=== PATIENT | male | born 2000 | race Caucasian/White ===

== ENCOUNTER 2022-02-04 06:59 | Outpatient (CLI) | payer OTHER, SELFPAY ==
--- NOTE | 2022-02-04 07:15 | US_ITS ---
WS: [id number] Limited abdomen ultrasound. HISTORY: Evaluate for hernia. Ultrasound is directed to the RIGHT inguinal region. There is a single loop of bowel which extends ve ry superficial and anterior to the femoral vein. I suspect this may be a nonincarcerated loop of mary l. No lymph nodes. During Valsalva this loop of bowel in the RIGHT inguinal region becomes more promi nent. US/US abdomen limited [id number] IMPRESSION: Findings are highly suspicious for RIGHT inguinal hernia which is nonincarcerat ed. This finding can be confirmed confirmed with CT evaluation.
== END 2022-02-04 07:00 | disposition home or self-care (01) ==
LOC: RAD 07:00
PROVIDERS: PCP Family Medicine; Visit Provider Family Medicine
DX: K40.90 Unilateral inguinal hernia, without obstruction or gangrene, not specified as recurrent (principal)
CPT/HCPCS: 76705

== ENCOUNTER 2022-02-21 08:31 | Day surgery (SDC) | payer OTHER, MEDICAID, SELFPAY ==
[2022-02-20 13:15] VITALS: BMI 24.2
[2022-02-21] VITALS (10 sets, daily range): BP systolic 107–131; BP diastolic 49–96; PULSE 59–96; RESP 12–18; TEMP 36.4–36.7; O2SAT 97–100
--- NOTE | 2022-02-21 09:04 | W.PM.OPSFHP ---
Same Day Surgery H&P Indication for Procedure/HPI DATE OF PROCEDURE: February 21, 2022 CHIEF COMPLAINT/INDICATIONFOR SURGICAL PROCEDURE: right inguinal hernia repair PREOP DIAGNOSIS: inguinal hernia PLANNED PROCEDURE: Operation Date: 02/21/22 09:50 Proposed Procedures p Laparoscopic Inguinal Hernia Repair 47891/k40.90(Right) - Anselmo Tyson MD Medications/Allergies* Home Medications Medication Instructions Recorded Confirmed Type No Known Home Medications 12/19/21 02/21/22 History Allergies/Adverse Reactions Allergy/AdvReac Type Severity Reaction Status Date / Time No Known Allergies Allergy Verified 02/15/22 09:30 Pertinent History/Comorbid Conditions* Social History Smoking and tobacco status: never smoked Second hand smoke exposure: No Alcohol intake: never Desire information about alcohol rehabilitation?: No Desire information about substance/drug rehabilitation?: No Pertinent Exam Findings alert, oriented x 3 and regular rate & rhythm Recommendations Surgery/Procedure today Coding Level of Care Code Acute Early [employer] Director for Kam Allen
[2022-02-21] MEDS: sodium chloride 0.9% 1,000 ML 30 ML IV (09:16)
--- NOTE | 2022-02-21 09:28 | ANES.PREANE2 ---
Pre-Anesthetic Assessment Height/Weight: Height 1.68 m Weight 68.039 kg Temp Pulse Resp BP Pulse Ox 97.9 F 72 16 131/96 100 02/21/22 08:46 02/21/22 08:46 02/21/22 08:46 02/21/22 08:46 02/21/22 08:46 Preop Diagnosis: inguinal hernia Operation Date: 02/21/22 09:50 Proposed Procedures p Laparoscopic Inguinal Hernia Repair [id number]/k40.90(Right) - Anselmo Tyson MD Familial anesthetic complications: none Was Beta Rahel taken within 24 hours: N/A Was Clonidine taken within 24 hours: N/A Last intake: Intake Last Liquid Date 02/20/22 Last Liquid Time 22:00 Last Solid Date 02/20/22 Last Solid Time 22:00 Social No alcohol and No tobacco Former addict Exam alert, oriented x 3, clear to auscultation bilaterally and regular rate & rhythm Airway Mallampati: Class I Dentition: other (4 missing teeth) Pulmonary None reported CV/HEM None reported None reported Hepatic None reported GI None reported Metabolic None reported Musc/skel None reported Neuropsych None reported Anesthetic Plan ASA status: 1 Anesthesia: General Other: Patient wishes to avoid any opioid due to history of addiction. This includes fentanyl during placement of ETT. purpose of fentanyl for intubation was explained to patient, but he still would like to decline. Risk of > 500 ml blood loss (7ml/kg in children): No Medications/Allergies Home Medications Medication Instructions Recorded Confirmed Last Taken Type No Known Home Medications 12/19/21 02/21/22 Unknown History Allergies Allergy/AdvReac Type Severity Reaction Status Date / Time No Known Allergies Allergy Verified 02/15/22 09:30 Current Medications Generic Name Dose Route Start Last Admin Trade Name Freq PRN Reason Stop Dose Admin Sodium Chloride 1,000 mls @ 30 mls/hr 02/21/22 08:45 02/21/22 09:16 Sodium Chloride 0.9% IV 02/22/22 08:44 30 mls/hr .Q24H SANCHEZ Administration PFSH Anesthesia Social History Smoking and tobacco status: never smoked Second hand smoke exposure: No Alcohol intake: never Desire information about alcohol rehabilitation?: No Desire information about substance/drug rehabilitation?: No Data Anesthesia Cardiac Studies: No Data to Display
--- NOTE | 2022-02-21 13:00 | PM.OP ---
Operative Report Date of procedure: February 21, 2022 Pre-op diagnosis: Right inguinal hernia Post-op diagnosis: Right indirect nguinal hernia Lipoma of the spermatic cord Procedure done: Laparoscopic total extraperitoneal repair of right indirect inguinal hernia with Surgimax 3D mesh Excision of lipoma of the spermatic cord Pathology: none sent Surgeon: Anselmo Tyson Anesthesia: General Condition: stable Disposition: PACU Procedure: The patient was taken to the operating room. After IV antibiotic was administered, the abdomen was prepped and draped in a sterile manner. Using a 15 blade, a 1.0 cm transverse incision was made infraumbilically on the right side. Subcutaneous tissue was divided using electrocautery and the anterior rectus sheath divided using an 11 blade. The rectus muscle was retracted laterally and the extraperitoneal space identified. A 11 mm port was placed and 15 mm of pneumoperitoneum was created. A 10 mm 30? scope was introduced and the retrorectus space was opened using the camera up to the pubic symphysis and 5 mm ports were placed in the midline, one 2-fingerbreadths above the pubic symphysis and the other midway between these two ports under direct visualization. Blunt dissection was carried out to open up the tissue in the midline and to the pubic symphysis, which was identified. The dissection was then carried laterally where the iliopubic tract was identified. There was no femoral, obturator or direct hernia noted. The inferior epigastric artery was identified and dissection was carried posterior to it and laterally, the space was opened up to the level of the umbilicus superior to the anterior superior iliac spine. I then proceeded to dissect out the spermatic cord and the indirect hernial sac was reduced . There was a small lipoma of the spermatic cord which was excised. 15 x 10cm Surgimax 3D mesh was rolled and introduced through the 10 mm port and then rolled laterally and apposed well against the abdominal wall to cover the myopectineal orifice completely. 10 Cc of 0.5% Marcaine was infiltrated into the preperitoneal space. The extraperitoneal space was desufflated under direct visualization to ensure no slippage of hernial sac under the mesh. All ports were removed, the anterior rectus fascia at the infraumbilical port closed using figure of eight 0 Vicryl sutures, subcutaneous tissue approximated using 3-0 Vicryl sutures and skin at all three port sites were closed using running subcuticular 4-0 Monocryl sutures and Dermabond. 10 mL of 0.5% Marcaine was infiltrated at the port sites. The patient was stable throughout the procedure.
[2022-02-21] MEDS: TRAMadol 50 mg Tablet PO (13:53)
--- NOTE | 2022-02-21 14:08 | ANE.PACU2 ---
Inpatient post-anesthesia follow up: Airway intact: Yes Vital signs: Temperature 98.1 F Pulse Rate 81 Respiratory Rate 18 Blood Pressure 110/65 Pulse Oximetry 97 Oxygen Delivery Me thod Room Air Oxygen Flow Rate 8 Fraction of Inspir ed Oxygen Hydration adequate: Yes Nausea and vomiting: No Pain level: 1 Mental status: Baseline
== END 2022-02-21 14:24 | disposition home or self-care (01) ==
PROVIDERS: PCP Family Medicine; Visit Provider Surgery
PROC: (CPT 49650; principal; 2022-02-21 09:50)
DX: K40.90 Unilateral inguinal hernia, without obstruction or gangrene, not specified as recurrent (principal); D17.6 Benign lipomatous neoplasm of spermatic cord
CPT/HCPCS: 49650; C1781; J0690; J1100; J2250; J2405; J2704; J2710; J3010; J3490; J7030

== ENCOUNTER → 2022-10-29 13:13 | Outpatient (BNVA) | payer MEDICAID, SELFPAY | PROVIDERS: PCP Registered Nurse; Visit Provider Surgery | DX: K40.90 Unilateral inguinal hernia, without obstruction or gangrene, not specified as recurrent (principal); R10.31 Right lower quadrant pain; R10.32 Left lower quadrant pain; Z98.890 Other specified postprocedural states; Z87.19 Personal history of other diseases of the digestive system | CPT/HCPCS: 99213 ==

== ENCOUNTER 2022-11-27 09:01 | Day surgery (SDC) | payer MEDICAID, SELFPAY ==
[2022-11-22 13:55] VITALS: BMI 25.8
[2022-11-27] VITALS (12 sets, daily range): BP systolic 108–135; BP diastolic 61–90; PULSE 69–100; RESP 12–22; TEMP 36.4–37.4; O2SAT 93–100
[2022-11-27] MEDS: sodium chloride 0.9% 1,000 ML 30 ML IV (09:38)
--- NOTE | 2022-11-27 10:12 | ANES.PREANE2 ---
Pre-Anesthetic Assessment Height/Weight: Height 1.68 m Weight 72.575 kg Temp Pulse Resp BP Pulse Ox O2 Del Method 99.3 F 81 16 135/90 100 11/27/22 09:13 11/27/22 09:13 11/27/22 09:13 11/27/22 09:13 11/27/22 09:13 11/27/22 09:28 Preop Diagnosis: left inguinal hernia Operation Date: 11/27/22 10:45 Proposed Procedures p lap left inguinal hernia with mesh possible bilateral K40.90,R10.31,R10.31(Left) - Rodrigo Caruso DO Familial anesthetic complications: none Was Beta Rahel taken within 24 hours: N/A Was Clonidine taken within 24 hours: N/A Last intake: Intake Last Liquid Date 11/27/22 Last Liquid Time 06:00 Last Solid Date 11/26/22 Last Solid Time 08:00 Social No alcohol and No tobacco Exam alert, oriented x 3, clear to auscultation bilaterally and regular rate & rhythm Airway Submandibular: within normal limits Cervical ROM: within normal limits Mallampati: Class II Dentition: full History/ROS No significant history except as noted Anesthetic Plan ASA status: 1 Anesthesia: General Medications/Allergies Home Medications Medication Instructions Recorded Confirmed Last Taken Type naproxen sodium 550 mg tablet 550 mg PO Q12H pain 30 days #60 08/20/22 11/22/22 11/22/22 Rx tabs Allergies Allergy/AdvReac Type Severity Reaction Status Date / Time No Known Allergies Allergy Verified 10/29/22 13:15 Current Medications Generic Name Dose Route Start Last Admin Trade Name Freq PRN Reason Stop Dose Admin Sodium Chloride 1,000 mls @ 30 mls/hr 11/27/22 09:15 11/27/22 09:38 Sodium Chloride 0.9% IV 11/28/22 09:14 30 mls/hr .Q24H SANCHEZ Administration PFSH Anesthesia Medical History Left inguinal hernia Surgical History Status post right inguinal hernia repair (02/21/22) Family History Grandmother Heart disease Hypertension Diabetes Cancer Grandfather Cancer Denies family history of Chronic kidney disease (CKD) Lung disease Social History Smoking and tobacco status: former smoker Second hand smoke exposure: No Alcohol intake: never Desire information about alcohol rehabilitation?: No Desire information about substance/drug rehabilitation?: No Data Anesthesia Cardiac Studies: No Data to Display
--- NOTE | 2022-11-27 11:29 | W.PM.OPSUD ---
Surgery/Procedure H&P Update DATE OF PROCEDURE: November 27, 2022 DATE H&P PERFORMED: 10/29/22 PREOP DIAGNOSIS: left inguinal hernia PLANNED PROCEDURE: Operation Date: 11/27/22 10:45 Proposed Procedures p lap left inguinal hernia with mesh possible bilateral K40.90,R10.31,R10.31(Left) - Rodrigo Caruso DO
[2022-11-27] MEDS: ceFAZolin 2,000 MG in sodium chloride 0.9% (plus) 50 ML 100 MG IV (11:58)
--- NOTE | 2022-11-27 12:23 | P.OP_ITS ---
Operative Report Date of procedure: November 27, 2022 Pre-op diagnosis: Preop Diagnosis left inguinal hernia Post-op diagnosis: same Procedure done: Laparoscopic (TEPP) repair of left inguinal hernia with mesh Implants: Large left 3D max Bard mesh Specimens removed/disposition: None Surgeon: Dr. Rodrigo Caruso DO Anesthesia: General Estimated blood loss (mL): 5 Complications: None apparent Brief History: This very pleasant 22-year-old gentleman who came in with a several month history of left inguinal pain. He is diagnosed with a left inguinal hernia. Laparoscopic repair with mesh was indicated. The risks and benefits were explained and documented. Procedure: Patient was wheeled into the operative room and placed on the OR table in a supine position. Abdomen was inspected prepped and draped in usual sterile fashion. Time-out was performed and all present were in agreement. A 15 blade scalpel was used to make 1.2 centimeter incision infraumbilically. Combination of sharp and blunt dissection was performed down to the anterior rectus sheath which was opened sharply. The dissecting balloon was then inserted into the sp barry of Retzius and blown up. We put the camera into the port and identified that we were in the correct space. I then placed 2 5 millimeter trocars suprapubically in the midline. I then used endokitners to bluntly dissect in the space of Retzius out laterally. An indirect inguinal hernia was identified on the left. Blunt dissection was performed to dissect down the hernia sac until the vas deferens dove medially. A large left inguinal mesh was then placed into the space of Retzius. The mesh was unrolled and tacked once medially at the pubic bone. The mesh laid out nicely over the spermatic cord. Minimal dissection was then performed on the right side. No hernia was identified and the mesh was noted to be in excellent position. I watched the hernia sac remained in place as insufflation was removed. Incisions were closed with 4 O Vicryl in a subcuticular interrupted fashion. Skin glue was applied. Patient tolerated the procedure well.
--- NOTE | 2022-11-27 12:53 | PC.NURSE ---
awake with verbal stemuli. Airway removed
[2022-11-27] MEDS: TRAMadol 50 mg Tablet 100 MG PO (13:41)
--- NOTE | 2022-11-27 13:52 | ANE.PACU2 ---
Inpatient post-anesthesia follow up: Airway intact: Yes Vital signs: Temperature 97.5 F Pulse Rate 90 Respiratory Rate 16 Blood Pressure 122/76 Pulse Oximetry 95 Oxygen Delivery Me thod Room Air Oxygen Flow Rate Fraction of Inspir ed Oxygen Hydration adequate: Yes Nausea and vomiting: No Pain level: 3 Mental status: Baseline
[2022-11-27] MEDS: ondansetron 2 mg/ML SDV 2 mL 4 MG IVP (14:10)
== END 2022-11-27 14:29 | disposition home or self-care (01) ==
PROVIDERS: PCP Registered Nurse; Visit Provider Surgery
PROC: (CPT 49650; principal; 2022-11-27 10:45)
DX: K40.90 Unilateral inguinal hernia, without obstruction or gangrene, not specified as recurrent (principal); Z87.891 Personal history of nicotine dependence
CPT/HCPCS: 49650; 51702; C1781; J0131; J0690; J1100; J1885; J2250; J2405; J2704; J3490; J7030

== ENCOUNTER → 2022-12-17 11:29 | Outpatient (BNVA) | payer MEDICAID, SELFPAY | PROVIDERS: PCP Registered Nurse; Visit Provider Surgery | DX: Z98.890 Other specified postprocedural states (principal); Z87.19 Personal history of other diseases of the digestive system | CPT/HCPCS: 99024 ==

== ENCOUNTER → 2022-12-31 14:35 | Outpatient (BNVA) | payer MEDICAID, SELFPAY | PROVIDERS: PCP Registered Nurse; Visit Provider Surgery | DX: Z98.890 Other specified postprocedural states (principal); Z87.19 Personal history of other diseases of the digestive system; R30.9 Painful micturition, unspecified | CPT/HCPCS: 99024 ==

== ENCOUNTER → 2023-01-14 09:05 | Outpatient (BNVA) | payer MEDICAID, SELFPAY | PROVIDERS: PCP Registered Nurse; Visit Provider Registered Nurse | DX: G43.109 Migraine with aura, not intractable, without status migrainosus (principal); R30.9 Painful micturition, unspecified; R42 Dizziness and giddiness; R10.9 Unspecified abdominal pain | CPT/HCPCS: 80053; 81000; 85025 ==

== ENCOUNTER 2023-02-10 10:55 | Outpatient (CLI) | payer MEDICAID, SELFPAY ==
--- NOTE | 2023-02-10 11:00 | US_ITS ---
WS: [id number] Ultrasound limited, abdominal wall. COMPARISON: 02/04/2022. Patient is status post hernia repair. No recurrent hernia is noted along the anterior abdominal wall. No fluid collection or soft tissue he matoma. US/US abdomen limited [id number] IMPRESSION: No evidence for recurrent hernia or postoperative abnormality along the anterio r abdominal wall.
== END 2023-02-10 10:56 | disposition home or self-care (01) ==
PROVIDERS: PCP Registered Nurse; Visit Provider Registered Nurse
DX: R10.9 Unspecified abdominal pain (principal); R30.9 Painful micturition, unspecified; R39.11 Hesitancy of micturition
CPT/HCPCS: 76705

== ENCOUNTER → 2024-03-22 11:53 | Outpatient (BNVA) | payer MEDICAID, SELFPAY | PROVIDERS: PCP Registered Nurse; Visit Provider Registered Nurse | DX: G43.909 Migraine, unspecified, not intractable, without status migrainosus (principal); R10.9 Unspecified abdominal pain | CPT/HCPCS: 80053; 85025 ==

== ENCOUNTER → 2024-03-24 10:47 | Outpatient (BNVA) | payer MEDICAID, SELFPAY | PROVIDERS: PCP Registered Nurse; Visit Provider Registered Nurse | DX: Z20.5 Contact with and (suspected) exposure to viral hepatitis (principal); R74.8 Abnormal levels of other serum enzymes | CPT/HCPCS: 86705; 86706; 86709; 86803; 87340; 87522; 87806 ==

== ENCOUNTER → 2025-03-09 09:22 | Outpatient (BNVA) | payer SELFPAY | PROVIDERS: PCP Registered Nurse; Visit Provider Nurse Practitioner Family | DX: G40.909 Epilepsy, unspecified, not intractable, without status epilepticus (principal); F19.91 Other psychoactive substance use, unspecified, in remission | CPT/HCPCS: 80307; 81000 ==